=== PATIENT | male | born 1995 | race Caucasian/White ===

== ENCOUNTER 2025-04-24 12:42 | Emergency (ER) | payer OTHER ==
[2025-04-24] MEDS ORDERED: oFLOXacin 0.3% Opth 5 ML BOT R EAR SCH (13:15)
== END 2025-04-24 13:20 | disposition home or self-care (01) ==
LOC: CSHERS 12:42
DX: H60.501 Unspecified acute noninfective otitis externa, right ear (principal); Z55.6 Problems related to health literacy
CPT/HCPCS: 99282